=== PATIENT | male | born 1960 | race Caucasian/White ===

== ENCOUNTER 2016-09-28 13:43 | Emergency (ER) | payer OTHER | END 2016-09-28 14:49 | disposition home or self-care (01) | LOC: ER 13:43 | DX: S16.1XXA Strain of muscle, fascia and tendon at neck level, initial encounter (principal); M25.511 Pain in right shoulder; F17.210 Nicotine dependence, cigarettes, uncomplicated; Z88.0 Allergy status to penicillin; W03.XXXA Other fall on same level due to collision with another person, initial encounter ==